=== PATIENT | female | born 1960 | race Two or more races ===

== ENCOUNTER 2024-04-18 07:13 | Emergency (ER) | payer OTHER ==
[~2024-04-18] VITALS: Ht 162.6 cm; Wt 83.9 kg
[~2024-04-18 07:13] MED LIST: ADVAIR 2501 DISK W/1 IH; AMLODIPINE BESY10 MG; ASA81 MG PO; ASPIR 8181 MG; ATENOLOL50 MG; CIPRO500 MG PO; COZAAR100 MG; DICLOFENAC POTA50 MG; DIOVAN; DIOVAN160 M1; ENALAPRIL MALEA20 MG; GLIMEPIRIDE2 MG PO; GLIMEPIRIDE4 MG; GLIMEPIRIDE4 MG PO; HUMULIN 70/30 V10 ML SQ; HYDROCHLOROTHIA25 MG; JANUVIA50 MG; LASIX40 MG PO; LEVAQUIN750 MG PO; LIPITOR20 MG; MEDROL4 MG PO; METFORMIN HCL500 MG; METFORMIN HCL500 MG PO; NEURONTIN300 MG; NORVASC10 MG PO; NOVOLIN 70/30 110 ML; PREVACID15 MG PO; PRILOSEC20 MG; PRILOSEC40 MG PO; PROTONIX40 MG PO; PROVENTIL2 MG PO; PYRIDIUM DS200 MG PO; SINGULAIR 10MG10 MG PO; SINVASTATIN; THEOPHYLLINE A200 MG PO; TOPROL XL25 MG PO; TOPROL XL50 MG PO; ULTRAM50 MG; VENTOLIN HFA18 GM; VICTOZA 2-0.6 MG/0.1; ZOCOR20 MG; ZYRTEC10 MG PO
[2024-04-18] MEDS ORDERED: GRALISE600 MG (07:40)
[2024-04-18] MEDS ORDERED: KETOROLAC TROMETHAMINE 60 MG VIAL IM ONE (08:45)
[2024-04-18 09:10] LABS: HEMATOCRIT 35.4 % (36.0-45.00); HEMOGLOBIN 11.7 g/dL (12.0-15.00); MEAN CELL VOLUME 79.8 fL (80.00-100.00); MEAN CORPUSCULAR HEMOGLOBIN 26.5 pg (27.00-32.0); MEAN CORPUSCULAR HGB CONC 33.2 g/dl (32.0-36.0); PLATELET COUNT 383 K/uL (150-450); RED BLOOD COUNT 4.43 M/uL (4.00-6.00); RED CELL DISTRIBUTION WIDTH 14.1 % (11.5-14.5)
[2024-04-18 09:19] LABS: INR 1.05; PARTIAL THROMBOPLASTIN TIME 31.2 SECONDS (22.0-34.0); PROTHROMBIN TIME 11.4 SECONDS (9.0-11.5)
[2024-04-18 09:20] LABS: ERYTHROCYTE SEDIMENTATION RATE 77 mm/hr
[2024-04-18 09:27] LABS: ALBUMIN 3.5 gm/dL (3.4-5.0); BILIRUBIN TOTAL 0.4 mg/dL (0.3-1.2); CALCIUM 10.3 mg/dL (8.5-10.1); CREATININE SERUM 1.07 mg/dL (0.55-1.02); GFR 52.13; GLOBULINA 4.9 G/DL (2.4-3.5); POTASSIUM 4.27 mEq/L (3.5-5.1); T4 FREE 1.23 NG/ML (0.76-1.46); TOTAL PROTEIN 8.4 gm/dL (6.4-8.2)
[2024-04-18 10:02] LABS: CHOL HDL RATIO 4.9 (0-5.0); TSH 0.51 uIU/mL (0.358-3.74)
== END 2024-04-18 11:11 | disposition home or self-care (01) ==
LOC: ER 07:15
PROVIDERS: Emergency Medicine
DX: M72.2 Plantar fascial fibromatosis (principal); M77.30 Calcaneal spur, unspecified foot; I10 Essential (primary) hypertension; E11.9 Type 2 diabetes mellitus without complications; Z88.2 Allergy status to sulfonamides; Z88.6 Allergy status to analgesic agent; Z91.018 Allergy to other foods
CPT/HCPCS: 36415; 96372; 99282; J1885

== ENCOUNTER 2024-06-04 18:05 | Emergency (ER) | payer OTHER ==
[~2024-06-04] VITALS: Ht 162.6 cm; Wt 84.8 kg
[~2024-06-04 18:05] MED LIST changes: +GRALISE600 MG
[2024-06-04] MEDS ORDERED: ZESTRIL5 MG (18:17)
[2024-06-04] MEDS ORDERED: TRULICITY1.5 MG/0.5 (18:17)
[2024-06-04] MEDS ORDERED: 0.9 % SODIUM CHLORIDE 1,000 ML IV ONE (18:45)
[2024-06-04] MEDS ORDERED: INSULIN REGULAR, HUMAN 1,000 UNIT/10 ML UNITS SUBCUTANEO ONE ×2 (18:45→20:15)
[2024-06-04] MEDS ORDERED: METHYLPREDNISOLONE SOD SUCC 40 MG VIAL IM ONE (18:45)
== END 2024-06-04 22:32 | disposition home or self-care (01) ==
LOC: ER 18:07
DX: R60.0 Localized edema (principal); Z91.018 Allergy to other foods; Z88.6 Allergy status to analgesic agent; J45.909 Unspecified asthma, uncomplicated; I10 Essential (primary) hypertension
CPT/HCPCS: 96365; 96366; 99282; J1815; J3490; J7030